=== PATIENT | male | born 1995 | race Caucasian/White ===

== ENCOUNTER 2016-03-15 23:41 | Emergency (ER) | payer OTHER ==
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
--- NOTE | 2016-03-16 01:51 | EDDOCDS ---
Physician Documentation [facility] Name: Shade Hutchinson Age: 20 yrs Sex: Male : 1995 Arrival Date: 03/15/2016 Time: 23:41 Bed I4 / M4 Private MD: [facility] [place] Disposition: 03/16/16 01:45 Discharged to Home/Self Care. Impression: Strain of muscle, fascia and tendon of lower back. - Condition is Stable. - Discharge Instructions: Lumbosacral Strain, Back Pain, Adult. - Prescriptions for Ibuprofen 800 mg Oral Tablet - take 1 tablet by ORAL route every 8 hours As needed take with food; 30 tablet. - Medication Reconciliation, Local Pharmacy Hours form. - Follow up: [facility] [place]; When: Call to arrange an appointment; Reason: Recheck today's complaints, Continuance of care. - Problem is new. - Symptoms are unchanged. Historical: - Allergies: no known allergies; - Home Meds: 1. none - PMHx: Chronic Low Back Pain; - PSHx: none; - Social history: Smoking status: Patient states was never smoker of tobacco. No barriers to communication noted, The patient speaks fluent Belarusian. - : The pt / caregiver states he / she is not on anticoagulants. Home medication list is obtained from the patient. - Exposure Risk Screening:: None identified. Vital Signs: 03/15 23:42 BP 144 / 80; Pulse 86; Resp 18 S; Temp 97.8(O); Pulse Ox 97% on R/A; Weight 68.95 kg / dd6 152.01 lbs (R); Height 5 ft. 6 in. (167.64 cm) (R); 23:42 Body Mass Index 24.53 (68.95 kg, 167.64 cm) dd6 MDM: 03/16 01:44 Financial registration complete. pm4 Signatures: Salma Francis RN RN Carlyle Amaral PA PA mo1 Felicia Vieira LPN LPN slBakari Gomze, Reg Reg pm4 MTDD
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
--- NOTE | 2016-03-18 02:51 | EDDOCDS ---
Physician Documentation [facility] Name: Shade Hutchinson Age: 20 yrs Sex: Male : 1995 Arrival Date: 03/15/2016 Time: 23:41 Bed I4 / M4 Private MD: [facility] [place] Disposition: 03/16/16 01:45 Discharged to Home/Self Care. Impression: Strain of muscle, fascia and tendon of lower back. - Condition is Stable. - Discharge Instructions: Lumbosacral Strain, Back Pain, Adult. - Prescriptions for Ibuprofen 800 mg Oral Tablet - take 1 tablet by ORAL route every 8 hours As needed take with food; 30 tablet. - Medication Reconciliation, Local Pharmacy Hours form. - Follow up: [facility] [place]; When: Call to arrange an appointment; Reason: Recheck today's complaints, Continuance of care. - Problem is new. - Symptoms are unchanged. Historical: - Allergies: no known allergies; - Home Meds: 1. none - PMHx: Chronic Low Back Pain; - PSHx: none; - Social history: Smoking status: Patient states was never smoker of tobacco. No barriers to communication noted, The patient speaks fluent Sami. - : The pt / caregiver states he / she is not on anticoagulants. Home medication list is obtained from the patient. - Exposure Risk Screening:: None identified. Vital Signs: 03/15 23:42 BP 144 / 80; Pulse 86; Resp 18 S; Temp 97.8(O); Pulse Ox 97% on R/A; Weight 68.95 kg / dd6 152.01 lbs (R); Height 5 ft. 6 in. (167.64 cm) (R); 23:42 Body Mass Index 24.53 (68.95 kg, 167.64 cm) dd6 MDM: 03/16 01:44 Financial registration complete. pm4 01:55 [facility] was scanned into [employer] and attached to record. pm4 01:56 [facility] Payment Agreement was scanned into [employer] and attached to record. pm4 09:03 T-Sheet-- Draft Copy was scanned into [employer] and attached to record. [facility] Signatures: Salma Francis RN RN Carlyle Amaral PA PA mo1 Vieira,FeliciaGREG crawley LPN, Sarah seh Montondo, Paul, Reg Reg pm4 The chart was reviewed and I authenticate all verbal orders and agree with the evaluation and treatment provided.Attachments: 01:56 [facility] Payment Agreement pm4 09:03 T-Sheet-- Draft Copy [facility] Chart Complete YOSELIND
--- NOTE | 2016-03-18 02:51 | EDDOCDS ---
Physician Documentation [facility] Name: Shade Hutchinson Age: 20 yrs Sex: Male : 1995 Arrival Date: 03/15/2016 Time: 23:41 Bed I4 / M4 Private MD: [facility] [place] Disposition: 03/16/16 01:45 Discharged to Home/Self Care. Impression: Strain of muscle, fascia and tendon of lower back. - Condition is Stable. - Discharge Instructions: Lumbosacral Strain, Back Pain, Adult. - Prescriptions for Ibuprofen 800 mg Oral Tablet - take 1 tablet by ORAL route every 8 hours As needed take with food; 30 tablet. - Medication Reconciliation, Local Pharmacy Hours form. - Follow up: [facility] [place]; When: Call to arrange an appointment; Reason: Recheck today's complaints, Continuance of care. - Problem is new. - Symptoms are unchanged. Historical: - Allergies: no known allergies; - Home Meds: 1. none - PMHx: Chronic Low Back Pain; - PSHx: none; - Social history: Smoking status: Patient states was never smoker of tobacco. No barriers to communication noted, The patient speaks fluent Kazakh. - : The pt / caregiver states he / she is not on anticoagulants. Home medication list is obtained from the patient. - Exposure Risk Screening:: None identified. Vital Signs: 03/15 23:42 BP 144 / 80; Pulse 86; Resp 18 S; Temp 97.8(O); Pulse Ox 97% on R/A; Weight 68.95 kg / dd6 152.01 lbs (R); Height 5 ft. 6 in. (167.64 cm) (R); 23:42 Body Mass Index 24.53 (68.95 kg, 167.64 cm) dd6 MDM: 03/16 01:44 Financial registration complete. pm4 01:55 [facility] was scanned into thePlatform and attached to record. pm4 01:56 [facility] Payment Agreement was scanned into thePlatform and attached to record. pm4 09:03 T-Sheet-- Draft Copy was scanned into thePlatform and attached to record. [facility] Signatures: Salma Francis RN RN Carlyle Amaral PA PA mo1 Vieira,FeliciaGREG crawley LPN, Sarah seh Montondo, Paul, Reg Reg pm4 The chart was reviewed and I authenticate all verbal orders and agree with the evaluation and treatment provided.Attachments: 01:56 [facility] Payment Agreement pm4 09:03 T-Sheet-- Draft Copy [facility] Chart Complete YOSELIND
== END 2016-03-16 01:50 | disposition home or self-care (01) ==
LOC: M ED 23:41
DX: S29.012A Strain of muscle and tendon of back wall of thorax, initial encounter (principal); V49.40XA Driver injured in collision with unspecified motor vehicles in traffic accident, initial encounter; Y92.410 Unspecified street and highway as the place of occurrence of the external cause; Y93.89 Activity, other specified; Y99.8 Other external cause status; M54.5 Low back pain

== ENCOUNTER → 2016-10-03 | Outpatient (REF) | payer OTHER | LOC: M SFHCLERA 18:36 | PROVIDERS: ATTEND Nurse Practitioner Family | DX: R30.0 Dysuria (principal) | CPT/HCPCS: 87086; 87491; 87591; G0463 ==